=== PATIENT | female | born 1990 | race Asian ===

== ENCOUNTER 2023-03-19 21:35 | Observation (INO) | payer BC ==
[~2023-03-19] VITALS: Ht 154.9 cm; Wt 86.2 kg
== END 2023-03-19 22:30 | disposition home or self-care (01) ==
LOC: SPU 21:35
PROVIDERS: ADMIT Obstetrics & Gynecology; ATTEND Obstetrics & Gynecology
DX: O99.342 Other mental disorders complicating pregnancy, second trimester (principal); F41.9 Anxiety disorder, unspecified; Z3A.25 25 weeks gestation of pregnancy
CPT/HCPCS: G0379; G0378